=== PATIENT | male | born 1990 | race Two or more races ===

== ENCOUNTER 2017-11-30 11:10 | Emergency (ER) | payer OTHER ==
[2017-11-30] MEDS ORDERED: ONDANSETRON DISINTEGRATING 4 MG TAB PO ONE (11:20)
[2017-11-30 11:21] VITALS: BP 126/91
--- NOTE | 2017-11-30 11:41 | EDPHY ---
H & P Time Seen by Provider: 11/30/17 11:15 HPI/ROS: CHIEF COMPLAINT: Headache and neck pain and dizziness History by patient HISTORY OF PRESENT ILLNESS: 19-year-old man presents complaining of headache dizziness and nausea after head injury while playing soccer yesterday. Patient ran into another player in the struck heads. He did not lose consciousness but he felt dizzy and confused. He had headache some nausea. He has had no episodes of vomiting. He is able to sleep last night but this morning woke up in his feeling dizzy, nauseated and headachy again. He denies any focal numbness or weakness. He is not having any trouble walking. He says that he went to work and people told him he was not him use usual self and that he ought to see a doctor. He has not taken anything for the headache. The dizziness is worse when he moves around or when he closes his eyes and feels like he is spinning. REVIEW OF SYSTEMS: As in HPI, and all other systems reviewed and are negative Smoking Status: Never smoked Physical Exam: General Appearance: Alert, nontoxic-appearing. Head: normocephalic, atraumatic Eyes: Pupils equal and round, reactive to light, no pallor or injection. Extraocular movements intact Mouth: Mucous membranes moist. Respiratory: Normal, effort, lungs are clear to auscultation. No wheezes, rales or rhonchi. Cardiovascular: Regular rate and rhythm. S1, S2, no murmurs, gallops or rubs appreciated Gastrointestinal: Abdomen is soft and nontender, no masses, bowel sounds normal. Back: No CVA tenderness, no bony tenderness Neurological: Awake, alert and oriented x 3, cranial nerves 2 through 12 intact , no pronator drift, normal gait, heel to quezada intact, gfenhy-ke-zegc intact, DTRs 2+ and equal bilaterally, sensation equal bilaterally, negative Romberg Skin: Warm and dry, no rashes. Musculoskeletal: No deformities or tenderness. Extremities: full range of motion, no edema, DP2+ bilat Psychiatric: Patient has normal affect, there is no agitation. Constitutional: Initial Vital Signs Temperature (C) 37 C 11/30/17 11:18 Heart Rate 62 11/30/17 11:18 Respiratory Rate 16 11/30/17 11:18 Blood Pressure 126/91 H 11/30/17 11:18 O2 Sat (%) 94 11/30/17 11:18 O2 Delivery Mode Room Air Allergies/Adverse Reactions: No Known Allergies Allergy (Verified 11/30/17 11:18) Home Medications: Medication Instructions Recorded Meclizine HCl [Meclizine HCl 25 mg 25 mg PO BID #20 tab 11/30/17 (RX,OTC)] Multivitamins 11/30/17 MDM/Departure - MDM Medications Given: Discontinued Medications Ondansetron HCl (Zofran Odt) 4 mg PO EDNOW ONE Stop: 11/30/17 11:21 Last Admin: 11/30/17 11:39 Dose: 4 mg ED Course/Re-evaluation: 19-year-old man presents with concussion like symptoms after head injury yesterday. Patient has a normal neurologic exam and there is no indication for neuro imaging at this point. We discussed concussion symptoms, home care and expected course. Patient has been referred for follow-up with his primary care physician and to the concussion follow-up program. - Depart Disposition: Home, Routine, Self-Care Clinical Impression: Concussion Qualifiers: Encounter type: initial encounter Loss of consciousness presence/duration: without LOC Qualified Code(s): S06.0X0A - Concussion without loss of consciousness, initial encounter Condition: Fair Instructions: Sports Concussion (ED) Additional Instructions: You were seen by Dr. Liliana King today. You have had a concussion. The headache, dizziness and not feeling your usual self are common symptoms and these should resolve in 2-4 weeks. You may try meclizine for the dizziness. Do not return to sports until your symptoms have resolved. Then returned gradually bit by bit stopping when you feel any recurrence of symptoms. Please follow up with your primary care physician and you should receive a follow-up call from us from the concussion care program. Return for any worsening or new concerns. Stand Alone Forms: Work Excuse Prescriptions: Meclizine HCl [Meclizine HCl 25 mg (RX,OTC)] 25 mg PO BID #20 tab
== END 2017-11-30 11:47 | disposition home or self-care (01) ==
LOC: CED 11:10
DX: S06.0X0A Concussion without loss of consciousness, initial encounter (principal); W51.XXXA Accidental striking against or bumped into by another person, initial encounter; Y93.66 Activity, soccer; Y92.322 Soccer field as the place of occurrence of the external cause